=== PATIENT | female | born 1990 | race Caucasian/White ===

== ENCOUNTER 2017-09-15 23:06 | Emergency (ER) | payer MEDICAID ==
[~2017-09-15] VITALS: Ht 170.2 cm; Wt 63.5 kg
[2017-09-15 23:24] VITALS: BP_SYST 125
[2017-09-16] MEDS ORDERED: BACITRACIN 1 GM OINT TP ONE (00:30)
[2017-09-16 00:54] VITALS: BP_SYST 125
== END 2017-09-16 00:54 | disposition home or self-care (01) ==
LOC: SED 23:06
DX: M79.632 Pain in left forearm (principal); L02.414 Cutaneous abscess of left upper limb; F11.90 Opioid use, unspecified, uncomplicated; R03.0 Elevated blood-pressure reading, without diagnosis of hypertension
CPT/HCPCS: 99283